=== PATIENT | male | born 1945 | race African-American/Black ===

== ENCOUNTER 2019-03-13 18:30 | Emergency (ER) | payer MEDICARE, BC, MEDICAID ==
[~2019-03-13] VITALS: Ht 172.7 cm; Wt 68.0 kg
[2019-03-13] MEDS ORDERED: ONDANSETRON HCL 4MG/2ML INJ IV STA (20:33)
[2019-03-13] MEDS ORDERED: SODIUM CHLORIDE 0.9% 1,000 ML IV ONE (20:33)
[2019-03-13] MEDS ORDERED: KETOROLAC 30MG/ML VIAL IV STA (20:33)
[2019-03-13 21:53] LABS: BASOPHILS % 0.3 % (0.0-2.0); HEMATOCRIT. 43.1 % (42.0-52.0); HEMOGLOBIN. 14.4 g/dL (14.0-18.0); LYMPHOCYTES % 10.7 % (20.0-50.0); MEAN CORPUSCULAR HEMOGLOBIN 32.2 pg (28.0-32.0); MEAN PLATELET VOLUME 9.7 fl (7.4-10.4); MONOCYTES % 2.6 % (2.0-8.0); NEUTROPHILS % 86.4 % (40.0-76.0); PLATELET 235 x1000/uL (130-400); RED BLOOD CELL COUNT 4.49 mill/uL (4.7-6.1); RED CELL DISTRIBUTION WIDTH 13.5 % (11.6-14.6)
[2019-03-13 21:57] LABS: CHLORIDE 101 mEq/L (98-107)
[2019-03-13 23:46] VITALS: BP 126/72
== END 2019-03-13 23:47 | disposition home or self-care (01) ==
LOC: ER 18:30
DX: R10.9 Unspecified abdominal pain (principal); K40.90 Unilateral inguinal hernia, without obstruction or gangrene, not specified as recurrent; I10 Essential (primary) hypertension; Z98.890 Other specified postprocedural states
CPT/HCPCS: 36415; 74176; 80053; 83690; 84484; 85025; 93005; 96374; 96375; 99284; J1885; J2405; J7030

== ENCOUNTER 2019-04-13 12:42 | Emergency (ER) | payer MEDICARE, BC, MEDICAID ==
[~2019-04-13] VITALS: Ht 172.7 cm; Wt 68.0 kg
[2019-04-13 14:23] VITALS: BP 130/65
== END 2019-04-13 14:24 | disposition home or self-care (01) ==
LOC: ER 12:42
DX: K40.90 Unilateral inguinal hernia, without obstruction or gangrene, not specified as recurrent (principal); I10 Essential (primary) hypertension; Z98.890 Other specified postprocedural states
CPT/HCPCS: 99281